=== PATIENT | male | born 1970 | race Caucasian/White ===

== ENCOUNTER → 2018-03-03 | Outpatient (CLI) | payer MEDICAID ==
[~2018-03-03] MED LIST: ALDACTONE25 MG PO; ASPIR 8181 MG PO; CARVEDILOL3.125 MG PO; COZAAR 25 MG TA25 M1 PO; LIPITOR10 MG PO; METFORMIN HCL500 MG PO; MOBIC7.5 MG PO; NORCO 5-325 TA1 EACH PO; PENICILLIN V P500 MG PO
== END ==
LOC: M.RAD 12:51
DX: M47.894 Other spondylosis, thoracic region (principal); M41.82 Other forms of scoliosis, cervical region

== ENCOUNTER → 2018-03-09 | Outpatient (CLI) | payer MEDICAID | LOC: M.ULTRA 12:47 | DX: I73.9 Peripheral vascular disease, unspecified (principal); M79.605 Pain in left leg; M79.604 Pain in right leg; R94.39 Abnormal result of other cardiovascular function study ==

== ENCOUNTER 2019-02-02 13:28 | Inpatient (IN) | payer MEDICAID ==
[~2019-02-02] VITALS: Ht 188 cm; Wt 81.2 kg
[2019-02-02 13:32] VITALS: BP 166/79
[2019-02-02] MEDS ORDERED: PLAVIX 75 MG TA75 M1 PO ×2 (13:37→15:30)
[2019-02-02] MEDS ORDERED: LOVASTATIN 20 M20 MG PO (13:37)
[2019-02-02 14:13] LABS: ABSOLUTE EOSINOPHILS 0.2 thou/uL (0.0-0.7); ABSOLUTE LYMPHOCYTES 1.2 thou/uL (0.8-5.3); ABSOLUTE MONOCYTES 0.5 thou/uL (0.0-1.2); ABSOLUTE NEUTROPHILS 3.3 thou/uL (1.6-8.1); BASOPHILS 0.8 %; EOSINOPHILS 3.2 %; HEMATOCRIT 39.5 % (42.0-52.0); HEMOGLOBIN 13.5 gm/dL (14.0-18.0); LYMPHOCYTES 23.6 %; MCH 29.7 pg (26.0-34.0); MCHC 34.2 g/dL (28.0-37.0); MCV 86.7 fL (80.0-100.0); MONOCYTES 8.9 %; MPV 7.6 fl. (7.2-11.1); NUCLEATED RBCS 0 /100WBC; PLATELET COUNT* 423 thou/uL (150-400); POLYS 63.5 %; RBC 4.55 mil/uL (4.50-6.00); RDW-CV 12.6 % (10.5-14.5); WBC 5.1 thou/uL (4.0-11.0)
[2019-02-02 14:20] LABS: APTT 26.4 Seconds (25.0-31.3); INR 0.9; PROTIME 9.6 Seconds (9.20-11.50)
[2019-02-02 14:28] LABS: ALBUMIN 3.4 g/dL (3.4-5.0); CALCIUM 9.2 mg/dL (8.5-10.1); CREATININE 0.9 mg/dL (0.6-1.3); POTASSIUM 4.1 mmol/L (3.5-5.1); TOTAL BILIRUBIN 0.4 mg/dL (<0.1-1.0); TOTAL PROTEIN 7.6 g/dL (6.4-8.2)
[2019-02-02 19:18] VITALS: BP 155/83
[2019-02-02 19:30] VITALS: BP 158/87
[2019-02-03] VITALS (17 sets, daily range): BP systolic 138–195; BP diastolic 58–110
[2019-02-03 09:24] LABS: HEMATOCRIT 36.6 % (42.0-52.0); HEMOGLOBIN 12.6 gm/dL (14.0-18.0); MCH 30.2 pg (26.0-34.0); MCHC 34.6 g/dL (28.0-37.0); MCV 87.4 fL (80.0-100.0); MPV 8.2 fl. (7.2-11.1); RBC 4.19 mil/uL (4.50-6.00); RDW-CV 12.4 % (10.5-14.5); WBC 4.4 thou/uL (4.0-11.0)
[2019-02-03 09:54] LABS: CALCIUM 9.1 mg/dL (8.5-10.1); CREATININE 0.7 mg/dL (0.6-1.3); MAGNESIUM 1.8 mg/dL (1.8-2.4); POTASSIUM 3.7 mmol/L (3.5-5.1)
[2019-02-04 01:09] VITALS: BP 155/75
[2019-02-04 04:00] VITALS: BP 150/80
[2019-02-04 04:32] LABS: HEMATOCRIT 34.1 % (42.0-52.0); MCH 30.8 pg (26.0-34.0); MCHC 35.2 g/dL (28.0-37.0); MCV 87.5 fL (80.0-100.0); MPV 7.5 fl. (7.2-11.1); RBC 3.9 mil/uL (4.50-6.00); RDW-CV 12.5 % (10.5-14.5); WBC 4.9 thou/uL (4.0-11.0)
[2019-02-04 04:43] LABS: CALCIUM 8.9 mg/dL (8.5-10.1); CREATININE 0.8 mg/dL (0.6-1.3); POTASSIUM 3.8 mmol/L (3.5-5.1)
[2019-02-04 08:00] VITALS: BP 151/81
[2019-02-04 11:16] VITALS: BP 118/76
--- NOTE | 2019-02-04 15:53 | OP ---
[facility] [address] [place] [address] OPERATIVE REPORT Name: VISHNU THOMAS Room: [address] IN M.R.#: [id number] Admission: 02/02/19 Attend Phys: Lincoln Shelby MD Discharge: Date of : 70 Report #: [id number] THIS REPORT FOR: //name// CC: Steve Shelby DATE OF SERVICE: 02/03/2019 PREOPERATIVE DIAGNOSIS: Critical limb ischemia, left leg with acute thrombosis. POSTOPERATIVE DIAGNOSIS: Critical limb ischemia, left leg with acute thrombosis. PROCEDURES: 1. Angiogram aorta with runoff, left leg. 2. Ultrasound guidance for venous access with image saved, right common femoral artery. 3. Thrombolysis, left lower extremity popliteal and tibial vessels. 4. Thrombectomy, left lower extremity popliteal and tibial vessels. 5. Angioplasty, left lower extremity tibial vessels. 6. Angioplasty and stent, left femoral and popliteal arteries. 7. Angioplasty and stent, left common iliac artery. FINDINGS: 1. Aorta is widely patent. 2. Left common iliac artery has significant stenosis at its origin. 3. Remainder of the iliac vessels are widely patent bilaterally. 4. Bilateral common femoral, profunda femoris arteries widely patent. 5. Left SFA stent occluded at the adductor canal. There is reconstitution tibial vessels distally. There appears to be vwuhs-dx-eoaopjj thrombus. 6. There is a tight stenosis, mid stent after thrombectomy. After intervention, this is widely patent. 7. There is wide patency of tibial vessels after intervention. 8. There is wide patency of the left common iliac artery after angioplasty and stenting. SURGEON: Ej Kline MD LEGAL RECORDS CLERK: Abad Roberson. COMPLICATIONS: None. ESTIMATED BLOOD LOSS: 10 mL. SPECIMEN: Includes thrombectomy volume [address]. [place] [address] OPERATIVE REPORT Name: VISHNU THOMAS Room: [address]#: [id number] Admission: 02/02/19 Attend Phys: Lincoln Shelby MD Discharge: Date of : 70 Report #: [id number] ANESTHESIA: Local sedation. COMPLICATIONS: None. INDICATION FOR PROCEDURE: The patient is very well known to our service. He underwent angiogram by my partner, Dr. Valdez, done at [facility] about a month ago. He developed recurrent severe left leg pain last week. He presented to the ER with same complaints. He was noted to have an ischemic left foot and thrombosis of the stents. We recommended an urgent revascularization. Informed consent was obtained with risks including, but not limited to bleeding, infection, need for further surgery, pain, , heart attack, stroke, amputation. I think his risk of amputation is quite high given the prolonged time course to presentation and the severity of his disease. The patient understood these risks and was agreeable to proceed. DESCRIPTION OF PROCEDURE: The patient was taken to the angio suite, placed in supine position. Timeout was performed. The patient's right groin was prepped and draped. I infused 10 mL of 1% lidocaine. Under ultrasound guidance, with an image saved, I cannulated the right common femoral artery without difficulty. I used Seldinger technique to exchange out for a 6-Fijian sheath. I passed an Omniflush catheter into the abdominal aorta and performed aortogram. I selectively cannulated the left iliac system and placed ____ 6-Fijian sheath. I selectively cannulated the left superficial femoral artery. I used a wire and catheter to cross the occlusion within the distal stents. I then prepped and AngioJet 6-Fijian catheter. I power pulsed, infused 10 mg of TPA throughout the thrombus. I allowed this to marinate for 20 minutes. I then performed thrombectomy using the AngioJet catheter. Total volume was 220 mL. The patient now had flow through these vessels; however, there was still some residual thrombus and a tight narrowing within the mid stent. I placed a 7 x 60 E-Luminexx stent in the narrowed area. I post-dilated this with a 6 mm balloon. I had excellent result. Distally, there was some residual thrombus on the stents. I thus realigned the distal stents with a 6 x 80 LifeStent extending approximately 2 cm more distal into the below-knee popliteal artery. I post-dilated these with a 5 mm balloon. I had an excellent result with resolution of the thrombus. There is some residual thrombus in the tibial vessels. I angioplastied the anterior tibial and tibioperoneal trunk with a 4 mm balloon. I had an excellent result with resolution on completion imaging. On completion, the patient had 3-vessel runoff to the left foot. Main runoff appeared to be the anterior tibial artery. I withdrew my wire catheter. I performed repeat angiogram of the left iliac artery. I placed a 12 x 40 E-Luminexx stent in the common iliac artery. I post-dilated this with an 8 mm balloon. Completion imaging showed excellent result with resolution of the iliac stenosis. I removed my sheath and placed a 6-Fijian Angio-Seal without complication. There was no bleeding or hematoma. The patient tolerated the procedure well and was taken alert, awake to recovery room in good condition. [address] [address] OPERATIVE REPORT Name: LOIS THOMASN Zachary Room: [address]#: [id number] Admission: 02/02/19 Attend Phys: Lincoln Shelby MD Discharge: Date of : 70 Report #: [id number] Plan will be to continue heparin drip and convert the patient to oral anticoagulation for the foreseeable future. <ELECTRONICALLY SIGNED> By: Medardo Galan DO 02/04/19 1553 1213 0227Ej Kline MD /nt
[2019-02-04 20:00] VITALS: BP 158/83
[2019-02-04 23:48] VITALS: BP 146/70
[2019-02-05 03:07] LABS: HEMATOCRIT 32.7 % (42.0-52.0); HEMOGLOBIN 11.6 gm/dL (14.0-18.0); MCH 30.8 pg (26.0-34.0); MCHC 35.5 g/dL (28.0-37.0); MCV 86.6 fL (80.0-100.0); MPV 7.4 fl. (7.2-11.1); RBC 3.77 mil/uL (4.50-6.00); RDW-CV 12.7 % (10.5-14.5); WBC 4.1 thou/uL (4.0-11.0)
[2019-02-05 03:17] LABS: ALBUMIN 2.7 g/dL (3.4-5.0); CALCIUM 8.6 mg/dL (8.5-10.1); CREATININE 0.8 mg/dL (0.6-1.3); MAGNESIUM 1.8 mg/dL (1.8-2.4); TOTAL BILIRUBIN 0.3 mg/dL (<0.1-1.0)
[2019-02-05 04:08] VITALS: BP 137/70
[2019-02-05 08:00] VITALS: BP 166/89
[2019-02-05 12:00] VITALS: BP 151/82
[2019-02-05 16:00] VITALS: BP 137/69
[2019-02-05 20:00] VITALS: BP 151/71
[2019-02-06] VITALS: BP 147/68
[2019-02-06 04:00] VITALS: BP 128/71
[2019-02-06 07:19] LABS: HEMOGLOBIN 12.7 gm/dL (14.0-18.0); MCH 30.2 pg (26.0-34.0); MCHC 34.4 g/dL (28.0-37.0); MCV 87.8 fL (80.0-100.0); MPV 7.6 fl. (7.2-11.1); RBC 4.21 mil/uL (4.50-6.00); RDW-CV 12.6 % (10.5-14.5); WBC 3.8 thou/uL (4.0-11.0)
[2019-02-06 07:24] LABS: CALCIUM 8.7 mg/dL (8.5-10.1); CREATININE 0.8 mg/dL (0.6-1.3); MAGNESIUM 1.8 mg/dL (1.8-2.4); POTASSIUM 3.7 mmol/L (3.5-5.1)
[2019-02-06 07:26] LABS: PROTIME 10.1 Seconds (9.20-11.50)
[2019-02-06 09:00] VITALS: BP 155/62
[2019-02-06 12:00] VITALS: BP 157/78
[2019-02-06 20:00] VITALS: BP 146/66
[2019-02-07] VITALS: BP 140/69
[2019-02-07 04:00] VITALS: BP 151/76
[2019-02-07 04:22] LABS: HEMATOCRIT 34.4 % (42.0-52.0); HEMOGLOBIN 11.9 gm/dL (14.0-18.0); MCH 30.3 pg (26.0-34.0); MCHC 34.7 g/dL (28.0-37.0); MCV 87.5 fL (80.0-100.0); MPV 7.7 fl. (7.2-11.1); RBC 3.93 mil/uL (4.50-6.00); RDW-CV 12.6 % (10.5-14.5); WBC 3.6 thou/uL (4.0-11.0)
[2019-02-07 04:32] LABS: PROTIME 10.5 Seconds (9.20-11.50)
[2019-02-07 04:37] LABS: CALCIUM 8.9 mg/dL (8.5-10.1); CREATININE 0.8 mg/dL (0.6-1.3)
[2019-02-07 04:54] LABS: APTT 69.7 Seconds (25.0-31.3)
[2019-02-07 08:30] VITALS: BP 148/67
[2019-02-07 12:20] VITALS: BP 130/61
[2019-02-07 16:44] VITALS: BP 156/77
[2019-02-07 20:00] VITALS: BP 144/72
[2019-02-08 00:23] VITALS: BP 127/67
[2019-02-08 04:00] VITALS: BP 123/76
[2019-02-08 04:58] LABS: HEMATOCRIT 37.8 % (42.0-52.0); HEMOGLOBIN 13.1 gm/dL (14.0-18.0); MCH 30.3 pg (26.0-34.0); MCHC 34.6 g/dL (28.0-37.0); MCV 87.7 fL (80.0-100.0); MPV 7.7 fl. (7.2-11.1); RBC 4.31 mil/uL (4.50-6.00)
[2019-02-08 05:10] LABS: INR 1.1; PROTIME 11.7 Seconds (9.20-11.50)
[2019-02-08 05:14] LABS: CALCIUM 9.4 mg/dL (8.5-10.1); CREATININE 0.8 mg/dL (0.6-1.3); POTASSIUM 3.9 mmol/L (3.5-5.1)
[2019-02-08 08:30] VITALS: BP 132/64
[2019-02-08 12:30] VITALS: BP 101/49
[2019-02-08 16:15] VITALS: BP 129/72
[2019-02-08 19:50] VITALS: BP 137/65
[2019-02-09] VITALS (7 sets, daily range): BP systolic 117–158; BP diastolic 55–70
[2019-02-09 05:47] LABS: INR 1.5; PROTIME 15.1 Seconds (9.20-11.50)
[2019-02-10 04:00] VITALS: BP 159/71
[2019-02-10 05:00] LABS: INR 1.6; PROTIME 16.7 Seconds (9.20-11.50)
[2019-02-10 05:08] LABS: APTT 102.2 Seconds (25.0-31.3)
[2019-02-10 08:43] VITALS: BP 134/68
[2019-02-10 11:31] VITALS: BP 138/67
[2019-02-10 16:10] VITALS: BP 139/72
[2019-02-10 19:30] VITALS: BP 124/70
[2019-02-11] VITALS: BP 119/63
[2019-02-11 02:33] LABS: APTT 66.9 Seconds (25.0-31.3); INR 1.9; PROTIME 19.6 Seconds (9.20-11.50)
[2019-02-11 04:00] VITALS: BP 131/64
[2019-02-11 08:00] VITALS: BP 134/52
[2019-02-11] MEDS ORDERED: COUMADIN 5 MG TA5 M1 PO (11:10)
[2019-02-11] MEDS ORDERED: GABAPENTIN 100100 MG PO ×2 (11:10→13:50)
[2019-02-11] MEDS ORDERED: NORCO 7.5-3251 EACH PO (11:10)
[2019-02-11 11:54] VITALS: BP 150/82
[2019-02-11 13:33] VITALS: BP 150/82
[2019-02-11] MEDS ORDERED: NORCO 5-325 TA1 EACH PO (13:45)
== END 2019-02-11 15:27 | disposition home or self-care (01) | DRG 271 ==
LOC: M.ERS 13:28 → M.2W 16:18 → M.TBA-ER 16:18 → M.2W 19:10
PROVIDERS: Family Medicine; Surgery Vascular Surgery; ADMIT Internal Medicine
PROC: B4101ZZ Fluoroscopy of Abdominal Aorta using Low Osmolar Contrast (ICD-10-PCS; principal; 2019-02-03)
PROC: 047D3DZ Dilation of Left Common Iliac Artery with Intraluminal Device, Percutaneous Approach (ICD-10-PCS; principal; 2019-02-03)
PROC: 04CN3ZZ Extirpation of Matter from Left Popliteal Artery, Percutaneous Approach (ICD-10-PCS; principal; 2019-02-03)
PROC: 047N3DZ Dilation of Left Popliteal Artery with Intraluminal Device, Percutaneous Approach (ICD-10-PCS; principal; 2019-02-03)
PROC: 04CQ3ZZ Extirpation of Matter from Left Anterior Tibial Artery, Percutaneous Approach (ICD-10-PCS; principal; 2019-02-03)
PROC: 047L3DZ Dilation of Left Femoral Artery with Intraluminal Device, Percutaneous Approach (ICD-10-PCS; principal; 2019-02-03)
DX: E11.51 Type 2 diabetes mellitus with diabetic peripheral angiopathy without gangrene (principal); E44.1 Mild protein-calorie malnutrition; I77.1 Stricture of artery; I10 Essential (primary) hypertension; I82.412 Acute embolism and thrombosis of left femoral vein; I82.432 Acute embolism and thrombosis of left popliteal vein; I82.442 Acute embolism and thrombosis of left tibial vein; F17.210 Nicotine dependence, cigarettes, uncomplicated; E78.5 Hyperlipidemia, unspecified; I99.8 Other disorder of circulatory system; Z95.820 Peripheral vascular angioplasty status with implants and grafts; Z68.23 Body mass index [BMI] 23.0-23.9, adult; Z79.899 Other long term (current) drug therapy

== ENCOUNTER → 2019-02-25 | Outpatient (CLI) | payer MEDICAID ==
[~2019-02-25] MED LIST changes: +COUMADIN 5 MG TA5 M1 PO; +GABAPENTIN 100100 MG PO; +LOVASTATIN 20 M20 MG PO; +NORCO 7.5-3251 EACH PO; +PLAVIX 75 MG TA75 M1 PO
== END ==
LOC: M.ULTRA 12:54
DX: I70.213 Atherosclerosis of native arteries of extremities with intermittent claudication, bilateral legs (principal)

== ENCOUNTER 2019-02-26 20:54 | Emergency (ER) | payer MEDICAID ==
[~2019-02-26] VITALS: Ht 188 cm; Wt 86.2 kg
[2019-02-26 21:43] LABS: ABSOLUTE EOSINOPHILS 0.2 thou/uL (0.0-0.7); ABSOLUTE LYMPHOCYTES 2.7 thou/uL (0.8-5.3); ABSOLUTE MONOCYTES 0.5 thou/uL (0.0-1.2); ABSOLUTE NEUTROPHILS 3.2 thou/uL (1.6-8.1); BASOPHILS 0.7 %; EOSINOPHILS 3.6 %; HEMOGLOBIN 14.2 gm/dL (14.0-18.0); LYMPHOCYTES 40.9 %; MCH 30.7 pg (26.0-34.0); MCHC 35.4 g/dL (28.0-37.0); MCV 86.8 fL (80.0-100.0); MONOCYTES 6.8 %; MPV 7.3 fl. (7.2-11.1); NUCLEATED RBCS 0 /100WBC; PLATELET COUNT* 359 thou/uL (150-400); RBC 4.61 mil/uL (4.50-6.00); RDW-CV 12.8 % (10.5-14.5); WBC 6.7 thou/uL (4.0-11.0)
[2019-02-26 21:49] LABS: CALCIUM 8.7 mg/dL (8.5-10.1); CREATININE 1.2 mg/dL (0.6-1.3); POTASSIUM 4.1 mmol/L (3.5-5.1)
[2019-02-26 21:52] LABS: APTT 38.7 Seconds (25.0-31.3); INR 2.1; PROTIME 21.9 Seconds (9.20-11.50)
[2019-02-26] MEDS ORDERED: NORCO 5-325 TA1 EACH PO (23:42)
[2019-02-26] MEDS ORDERED: PLAVIX 75 MG TA75 M1 PO (23:56)
[2019-02-26 23:59] VITALS: BP 168/87
== END 2019-02-27 | disposition home or self-care (01) ==
LOC: M.ERS 20:54
PROVIDERS: Physician Assistant
DX: M79.672 Pain in left foot (principal); I10 Essential (primary) hypertension; E11.9 Type 2 diabetes mellitus without complications; I73.9 Peripheral vascular disease, unspecified; F17.210 Nicotine dependence, cigarettes, uncomplicated

== ENCOUNTER 2019-08-12 15:54 | Emergency (ER) | payer MEDICAID ==
[~2019-08-12] VITALS: Ht 188 cm; Wt 86.2 kg
[2019-08-12 17:45] VITALS: BP 163/86
== END 2019-08-12 17:46 | disposition home or self-care (01) ==
LOC: M.ERS 15:54
DX: M25.511 Pain in right shoulder (principal); F17.200 Nicotine dependence, unspecified, uncomplicated; I10 Essential (primary) hypertension; E11.9 Type 2 diabetes mellitus without complications; I73.9 Peripheral vascular disease, unspecified

== ENCOUNTER → 2019-09-02 | Outpatient (CLI) | payer MEDICAID ==
[~2019-09-02] MED LIST changes: +ASA81BEC PO; +COUMADIN 10MG T10 M1 PO; +HYDROCODON-ACE1 EAC5 PO; +IBUPROFEN200 M1 PO; +LIPITOR 20 MG T20 M1 PO; +NEURONTIN300 MG PO; +NICOTINE TRANSD21 M1 TRANSDERM; +PROTONIX40 M2 PO; +XANAX 0.5 MG0.5 M1 PO; +XARELTO10 M1 PO
== END ==
LOC: M.RAD 08-22 09:21
DX: Z53.9 Procedure and treatment not carried out, unspecified reason (principal)

== ENCOUNTER → 2019-09-20 | Outpatient (CLI) | payer MEDICAID | LOC: M.MRI 07:23 | DX: S46.011A Strain of muscle(s) and tendon(s) of the rotator cuff of right shoulder, initial encounter (principal); M19.011 Primary osteoarthritis, right shoulder; M25.711 Osteophyte, right shoulder; M75.81 Other shoulder lesions, right shoulder; M25.411 Effusion, right shoulder; X58.XXXA Exposure to other specified factors, initial encounter; Y93.89 Activity, other specified; Y92.89 Other specified places as the place of occurrence of the external cause; Y99.8 Other external cause status ==

== ENCOUNTER 2019-10-06 10:04 | Inpatient (IN) | payer MEDICAID ==
[~2019-10-06] VITALS: Ht 188 cm; Wt 92.5 kg
[~2019-10-06 10:04] MED LIST changes: -ASA81BEC PO; -COUMADIN 10MG T10 M1 PO; -HYDROCODON-ACE1 EAC5 PO; -IBUPROFEN200 M1 PO; -LIPITOR 20 MG T20 M1 PO; -NEURONTIN300 MG PO; -NICOTINE TRANSD21 M1 TRANSDERM; -PROTONIX40 M2 PO; -XANAX 0.5 MG0.5 M1 PO; -XARELTO10 M1 PO
[2019-10-06 10:11] VITALS: BP 146/74
[2019-10-06] MEDS ORDERED: COUMADIN 10MG T10 M1 PO (10:15)
[2019-10-06 10:54] LABS: ABSOLUTE EOSINOPHILS 0.2 thou/uL (0.0-0.7); ABSOLUTE LYMPHOCYTES 1.6 thou/uL (0.8-5.3); ABSOLUTE MONOCYTES 0.6 thou/uL (0.0-1.2); ABSOLUTE NEUTROPHILS 3.4 thou/uL (1.6-8.1); BASOPHILS 0.6 %; EOSINOPHILS 3.8 %; HEMATOCRIT 37.2 % (42.0-52.0); HEMOGLOBIN 13.2 gm/dL (14.0-18.0); LYMPHOCYTES 27.3 %; MCH 31.4 pg (26.0-34.0); MCHC 35.5 g/dL (28.0-37.0); MCV 88.5 fL (80.0-100.0); MONOCYTES 10.8 %; NUCLEATED RBCS 0 /100WBC; PLATELET COUNT* 283 thou/uL (150-400); POLYS 57.5 %; RBC 4.21 mil/uL (4.50-6.00); RDW-CV 12.6 % (10.5-14.5)
[2019-10-06 11:02] LABS: CALCIUM 8.9 mg/dL (8.5-10.1); CREATININE 0.9 mg/dL (0.6-1.3); POTASSIUM 4.5 mmol/L (3.5-5.1)
[2019-10-06 11:06] LABS: ALBUMIN 3.5 g/dL (3.4-5.0); TOTAL BILIRUBIN 0.5 mg/dL (<0.1-1.0); TOTAL PROTEIN 7.1 g/dL (6.4-8.2)
[2019-10-06 11:07] LABS: APTT 38.5 Seconds (25.0-31.3); PROTIME 19.6 Seconds (9.20-11.50)
[2019-10-06 16:00] VITALS: BP 156/67
[2019-10-06] MEDS ORDERED: XANAX 0.5 MG0.5 M1 PO (17:07)
[2019-10-06 17:15] VITALS: BP 163/94
[2019-10-06 17:30] VITALS: BP 193/88
[2019-10-06 20:00] VITALS: BP 166/73
[2019-10-06 21:00] VITALS: BP 175/88
[2019-10-07] VITALS: BP 157/75
[2019-10-07 07:15] LABS: HEMATOCRIT 33.5 % (42.0-52.0); HEMOGLOBIN 12.1 gm/dL (14.0-18.0); MCH 31.7 pg (26.0-34.0); MCHC 36.1 g/dL (28.0-37.0); MCV 87.9 fL (80.0-100.0); MPV 7.5 fl. (7.2-11.1); RBC 3.81 mil/uL (4.50-6.00); RDW-CV 12.8 % (10.5-14.5); WBC 5.6 thou/uL (4.0-11.0)
[2019-10-07 07:35] LABS: CALCIUM 8.5 mg/dL (8.5-10.1); CREATININE 0.8 mg/dL (0.6-1.3); POTASSIUM 4.1 mmol/L (3.5-5.1); TOTAL BILIRUBIN 0.5 mg/dL (<0.1-1.0)
[2019-10-07 08:25] VITALS: BP 159/77
[2019-10-07 09:57] VITALS: BP 145/76
[2019-10-07 16:00] VITALS: BP 115/62
[2019-10-07 20:00] VITALS: BP 151/60
[2019-10-08 09:52] VITALS: BP 165/81
[2019-10-08] MEDS ORDERED: IBUPROFEN200 M1 PO (11:10)
[2019-10-08 11:11] VITALS: BP 165/81
[2019-10-08] MEDS ORDERED: HYDROCODON-ACE1 EAC5 PO (11:17)
[2019-10-08] MEDS ORDERED: PROTONIX40 M2 PO (11:22)
[2019-10-08] MEDS ORDERED: NICOTINE TRANSD21 M1 TRANSDERM (11:22)
[2019-10-08] MEDS ORDERED: XARELTO10 M1 PO (11:23)
[2019-10-08] MEDS ORDERED: ASA81BEC PO (12:13)
[2019-10-08] MEDS ORDERED: LIPITOR 20 MG T20 M1 PO (12:18)
[2019-10-08] MEDS ORDERED: NEURONTIN300 MG PO (12:20)
--- NOTE | 2019-10-14 12:02 | OP ---
[address] [address] OPERATIVE REPORT Name: NATALIAANTONIOVISHNUJAM ZIMMERMAN Room: [address] IN .R.#: [id number] Admission: 10/06/19 Attend Phys: Chi Kim, Discharge: 10/08/19 Date of : 70 Report #: [id number] THIS REPORT FOR: //name// CC: Steve Kim DATE OF SERVICE: 10/06/2019 PREOPERATIVE DIAGNOSIS: Acute limb ischemia, left lower extremity. POSTOPERATIVE DIAGNOSIS: Acute limb ischemia, left lower extremity. PROCEDURES: 1. Aortogram runoff, left lower extremity. 2. Left SFA and popliteal artery thrombectomy. 3. Angioplasty, left popliteal artery. 4. Angioplasty and stenting of left superficial femoral artery. 5. Angioplasty of the left profunda femoris artery. 6. Third-order vessel cannulation, left lower extremity. 7. Thrombolysis, left lower extremity. SURGEON: Ej Kline MD SECTION BEAMER: KIARA Broussard COMPLICATIONS: None. ANESTHESIA: Local with sedation. COMPLICATIONS: None. ESTIMATED BLOOD LOSS: 10 mL. THROMBECTOMY VOLUME: 300 mL. INDICATIONS FOR PROCEDURE: The patient is a very pleasant 48-year-old white male, smoker, who has presented on multiple occasions with an acutely ischemic left lower extremity. Most recently, he was back in January of this last year when I performed a similar procedure and revascularized his left leg. He represents today with a 3-day history of worsening left leg pain. Duplex confirmed acute thrombosis of his left SFA and popliteal stent. He was finally taken for emergent revascularization today. Informed consent was obtained with risks including but not limited to bleeding, infection, need for further surgery, pain, , heart attack, stroke, amputation. The patient understands these risks and is agreeable to proceed. If he continues to smoke, he would certainly end up with an amputation of his left leg given his multiple acute [facility] [address] [place] [address] OPERATIVE REPORT Name: VISHNU THOMAS Room: [address]#: [id number] Admission: 10/06/19 Attend Phys: Chi Kim, Discharge: 10/08/19 Date of : 70 Report #: [id number] limb ischemic events. DESCRIPTION OF PROCEDURE: The patient was taken emergently to the angio suite, placed in supine position. Timeout was performed. His right groin was prepped and draped in usual sterile fashion. I infused 20 mL of 1% lidocaine into the right groin. I accessed the right common femoral artery without difficulty. I used Seldinger technique to exchange out for a 6-Guatemalan sheath. I then placed an Omniflush catheter into the abdominal aorta and performed aortogram with runoff. I selectively cannulated the left iliac system. I placed it up and over 6-Guatemalan sheath. I performed selective angiogram of the left leg. FINDINGS: 1. Aorta and iliac arteries are widely patent bilaterally. The left iliac stent is widely patent. 2. The bilateral common femoral and profunda femoris arteries are widely patent. 3. The left SFA is acutely thrombosed all the way down to the level of the popliteal artery and reconstitutes below the knee. 4. The patient has 3-vessel runoff to the left foot. 5. After thrombectomy and revascularization, there was a widely patent flow through the SFA and popliteal stents. I selectively cannulated the thrombosed SFA and passed a wire and crossed it through the acute thrombus. I confirmed that I was within the vessel distally with distal angiogram. I then prepped an AngioJet thrombectomy thrombolysis catheter. I performed thrombolysis of the entire SFA and popliteal stents using the AngioJet power pulse mode. I injected 10 mg TPA throughout the fresh thrombus. I allowed this to marinate for 20 minutes. I do note at 20 minutes I performed thrombectomy of the entire SFA and popliteal stents using the AngioJet catheter. Total thrombectomy volume of 300 mL. I then angioplastied the entire stent of popliteal using a 6 mm balloon. Completion imaging showed excellent result with resolution of the acute thrombus and much improved blood flow through the stent. There was still some residual stenosis in the proximal SFA stents as well as proximal to the stent up to the SFA origin. I stented both of these areas using a combination of 7 x 60 and 7 x 80 stents. I post-dilated these with a 6 mm balloon. Completion imaging showed excellent result with resolution of the stenosis. There did appear to be some subacute thrombus, which was down in the profunda. I ballooned this. There was some residual thrombus at the completion of the ballooning. I ballooned with a 6 mm balloon. However, this was non-flow limiting and I will just leave it at this time. To address this appropriately, he would likely require an endarterectomy opened in the OR. I removed my sheath and wire, placed a 6-Guatemalan Angio-Seal without complication. There was no bleeding or hematoma. The patient's foot was pink and warm at completion of the procedure with multiphasic signal in the posterior tibial artery. [address] [address] OPERATIVE REPORT Name: VISHNU THOMAS Room: [facility] IN [facility]#: [id number] Admission: 10/06/19 Attend Phys: Chi Kim, Discharge: 10/08/19 Date of : 70 Report #: [id number] PLAN: After the last ischemic leg, this patient was lost to follow up. He did follow up at [place] but no ultrasound was obtained. I think he needs close followup with an ultrasound in 1 month as he has been shown to have significant restenosis. At that time, if he has restenosis ____ for femoral endarterectomy ____ balloon angioplasty done at [place]. He was on Coumadin with an INR of up to 2 when he thrombosed his leg. For this reason, we will plan to put him on Xarelto instead if we can give that medication for him. He is on Medicaid. <ELECTRONICALLY SIGNED> By: Ej Kline MD 10/14/19 1202 1557 1718Ej Kline MD /nt
== END 2019-10-08 13:46 | disposition home or self-care (01) | DRG 272 ==
LOC: M.ERS 10:04 → M.TBA-ER 11:27 → M.3W 16:43
PROVIDERS: Nurse Practitioner Family; ADMIT Family Medicine
PROC: B41D1ZZ Fluoroscopy of Aorta and Bilateral Lower Extremity Arteries using Low Osmolar Contrast (ICD-10-PCS; principal; 2019-10-06)
PROC: 04CN3ZZ Extirpation of Matter from Left Popliteal Artery, Percutaneous Approach (ICD-10-PCS; principal; 2019-10-06)
PROC: 04CL3ZZ Extirpation of Matter from Left Femoral Artery, Percutaneous Approach (ICD-10-PCS; principal; 2019-10-06)
PROC: 047L3EZ Dilation of Left Femoral Artery with Two Intraluminal Devices, Percutaneous Approach (ICD-10-PCS; principal; 2019-10-06)
PROC: B41C1ZZ Fluoroscopy of Pelvic Arteries using Low Osmolar Contrast (ICD-10-PCS; principal; 2019-10-06)
PROC: 3E05317 Introduction of Other Thrombolytic into Peripheral Artery, Percutaneous Approach (ICD-10-PCS; principal; 2019-10-06)
DX: T82.868A Thrombosis due to vascular prosthetic devices, implants and grafts, initial encounter (principal); E11.51 Type 2 diabetes mellitus with diabetic peripheral angiopathy without gangrene; Y83.8 Other surgical procedures as the cause of abnormal reaction of the patient, or of later complication, without mention of misadventure at the time of the procedure; I10 Essential (primary) hypertension; F17.210 Nicotine dependence, cigarettes, uncomplicated; Z95.820 Peripheral vascular angioplasty status with implants and grafts; Z79.84 Long term (current) use of oral hypoglycemic drugs; Y92.89 Other specified places as the place of occurrence of the external cause; Z86.718 Personal history of other venous thrombosis and embolism

== ENCOUNTER 2019-10-13 14:12 | Emergency (ER) | payer MEDICAID ==
[~2019-10-13] VITALS: Ht 188 cm; Wt 86.2 kg
[~2019-10-13 14:12] MED LIST changes: +ASA81BEC PO; +COUMADIN 10MG T10 M1 PO; +HYDROCODON-ACE1 EAC5 PO; +IBUPROFEN200 M1 PO; +LIPITOR 20 MG T20 M1 PO; +NEURONTIN300 MG PO; +NICOTINE TRANSD21 M1 TRANSDERM; +PROTONIX40 M2 PO; +XANAX 0.5 MG0.5 M1 PO; +XARELTO10 M1 PO
[2019-10-13 15:04] LABS: INR 1.6; PROTIME 16.6 Seconds (9.20-11.50)
[2019-10-13 15:07] LABS: CREATININE 1.1 mg/dL (0.6-1.3); POTASSIUM 4.1 mmol/L (3.5-5.1)
[2019-10-13 15:49] VITALS: BP 171/90
== END 2019-10-13 15:50 | disposition home or self-care (01) ==
LOC: M.ERS 14:12
PROVIDERS: Emergency Medicine Emergency Medical Services
DX: M79.672 Pain in left foot (principal); I10 Essential (primary) hypertension; E11.9 Type 2 diabetes mellitus without complications

== ENCOUNTER 2020-07-31 01:01 | Inpatient (IN) | payer MEDICAID ==
[~2020-07-31] VITALS: Ht 188 cm; Wt 87.5 kg
[2020-07-31 01:10] VITALS: BP 180/96
[2020-07-31] MEDS ORDERED: GLIPIZIDE PO (01:17)
[2020-07-31] MEDS ORDERED: JANTOVEN10 MG PO (01:17)
[2020-07-31 01:55] LABS: ABSOLUTE BASOPHILS 0.1 thou/uL (0.0-0.2); ABSOLUTE EOSINOPHILS 0.2 thou/uL (0.0-0.7); ABSOLUTE LYMPHOCYTES 2.7 thou/uL (0.8-5.3); ABSOLUTE MONOCYTES 0.6 thou/uL (0.0-1.2); BASOPHILS 0.8 %; EOSINOPHILS 2.9 %; HEMATOCRIT 42.4 % (42.0-52.0); HEMOGLOBIN 15.3 gm/dL (14.0-18.0); LYMPHOCYTES 35.5 %; MCH 31.5 pg (26.0-34.0); MCHC 36.1 g/dL (28.0-37.0); MCV 87.3 fL (80.0-100.0); MONOCYTES 8.4 %; MPV 7.5 fl. (7.2-11.1); NUCLEATED RBCS 0 /100WBC; PLATELET COUNT* 228 thou/uL (150-400); POLYS 52.4 %; RBC 4.85 mil/uL (4.50-6.00); RDW-CV 13.4 % (10.5-14.5); WBC 7.6 thou/uL (4.0-11.0)
[2020-07-31 01:58] LABS: INR 2.1; PROTIME 20.7 Seconds (9.20-11.50)
[2020-07-31 02:02] LABS: CALCIUM 8.3 mg/dL (8.5-10.1); CREATININE 0.9 mg/dL (0.6-1.3); POTASSIUM 4.2 mmol/L (3.5-5.1)
[2020-07-31 07:43] VITALS: BP 131/70
[2020-07-31 11:23] VITALS: BP 128/65
[2020-07-31 16:01] VITALS: BP 107/65; BP 140/76
[2020-07-31 16:23] VITALS: BP 140/76
== END 2020-07-31 19:47 | disposition left against medical advice (07) | DRG 316 ==
LOC: M.ERS 01:01 → M.TBA-ER 04:16 → M.2W 15:55
PROVIDERS: Emergency Medicine; ADMIT Internal Medicine; ATTEND Internal Medicine
DX: T82.868A Thrombosis due to vascular prosthetic devices, implants and grafts, initial encounter (principal); I77.1 Stricture of artery; I10 Essential (primary) hypertension; I99.8 Other disorder of circulatory system; E11.51 Type 2 diabetes mellitus with diabetic peripheral angiopathy without gangrene; Y83.8 Other surgical procedures as the cause of abnormal reaction of the patient, or of later complication, without mention of misadventure at the time of the procedure; Z20.828 Contact with and (suspected) exposure to other viral communicable diseases; Y92.89 Other specified places as the place of occurrence of the external cause; Z79.01 Long term (current) use of anticoagulants; Z79.84 Long term (current) use of oral hypoglycemic drugs; Z79.82 Long term (current) use of aspirin; Z79.899 Other long term (current) drug therapy

== ENCOUNTER 2020-07-31 21:37 | Inpatient (IN) | payer MEDICAID ==
[~2020-07-31] VITALS: Ht 188 cm; Wt 80.7 kg
[~2020-07-31 21:37] MED LIST changes: +GLIPIZIDE PO; +JANTOVEN10 MG PO
[2020-07-31 21:45] VITALS: BP 118/82
--- NOTE | 2020-07-31 22:00 | NUR ---
PATIENT RETURNING TO ED STATES HE WAS ADMITTED TO THE HOSPITAL BUT SIGNED OUT AGAINST MEDICAL ADVICE IN ORDER TO RETURN HOME TO TAKE CARE OF THINGS AT HOME AND IS RETURNING FOR CONTINUED TREATMENT. PATIENT AMBULATORY INTO ED AND IS RETURNING FOR READMISSION.
[2020-08-01] VITALS (7 sets, daily range): BP systolic 138–177; BP diastolic 64–86
[2020-08-01 00:13] LABS: ABSOLUTE EOSINOPHILS 0.2 thou/uL (0.0-0.7); ABSOLUTE LYMPHOCYTES 2.5 thou/uL (0.8-5.3); ABSOLUTE MONOCYTES 0.6 thou/uL (0.0-1.2); BASOPHILS 0.6 %; EOSINOPHILS 3.4 %; HEMATOCRIT 43.5 % (42.0-52.0); HEMOGLOBIN 15.9 gm/dL (14.0-18.0); LYMPHOCYTES 39.6 %; MCH 31.7 pg (26.0-34.0); MCHC 36.5 g/dL (28.0-37.0); MCV 86.9 fL (80.0-100.0); MPV 7.5 fl. (7.2-11.1); NUCLEATED RBCS 0 /100WBC; PLATELET COUNT* 232 thou/uL (150-400); POLYS 47.4 %; RDW-CV 13.2 % (10.5-14.5); WBC 6.4 thou/uL (4.0-11.0)
[2020-08-01 00:23] LABS: PROTIME 20.5 Seconds (9.20-11.50)
[2020-08-01 00:26] LABS: CALCIUM 8.5 mg/dL (8.5-10.1); CREATININE 0.9 mg/dL (0.6-1.3); POTASSIUM 4.3 mmol/L (3.5-5.1); TOTAL BILIRUBIN 0.4 mg/dL (<0.1-1.0); TOTAL PROTEIN 7.2 g/dL (6.4-8.2)
--- NOTE | 2020-08-01 06:11 | NUR ---
PT RECIEVED FROM ED IN ROOM 201. ALERT AND ORIENTED X4. HEPARIN DRIP RUNNING. C/O PAIN, MEDICATION GIVEN PER EMAR. LFT LEG COOL TO TOUCH. PT USING BEDSIDE URINAL. CALL LIGHT WITHIN REACH AND BED IN LOW POSITION. HOURLY ROUNDING DONE FOR PT SAFETY
--- NOTE | 2020-08-01 13:43 | NUR ---
Pt is A&O. Resides at home alone. Independent. No DME. No hx of HH or SNF. Pt's PCP is Dr Ken in [place]. CV to [facility], revision on legs tomorrow. Goal is home at me. Following.
--- NOTE | 2020-08-01 15:04 | 2DMMODE ---
[place] [address] 2 D/M-MODE ECHOCARDIOGRAM Name: WILLIAMVISHNUJAM ZIMMERMAN Room: [address] IN .R.#: [id number] Admission: 07/31/20 Attend Phys: Lincoln Shelby, Discharge: Date of : 70 Date of Service: 08/01/20 1503 Report #: [id number] THIS REPORT FOR: cc: INOCENCIO - No family physician/PCP INOCENCIO - No family physician/PCP Rober Ortiz MD [facility] ~ APPROVED REPORT Study performed: 08/01/2020 11:22:03 EXAM: Comprehensive 2D, Doppler, and color-flow Echocardiogram Patient Location: In-Patient Room #: 201 Status: routine BSA: 2.07 HR: 70 bpm BP: 138/64 mmHg Rhythm: NSR Other Information Study Quality: Good Indications Pre-Op 2D Dimensions IVSd: 10.98 (7-11mm) LVOT Diam: 19.94 (18-24mm) LVDd: 45.17 mm PWd: 9.73 (7-11mm) Ascending Ao: 32.87 (22-36mm) LVDs: 25.83 (25-40mm) Aortic Root: 32.21 mm Volumes Left Atrial Volume (Systole) LA ESV Index: 24.90 mL/m2 Aortic Valve AoV Peak Mirza.: 1.36 m/s AO Peak Gr.: 7.36 mmHg LVOT Max P.61 mmHg AO Mean Gr.: 3.68 mmHg LVOT Mean P.56 mmHg LVOT Max V: 0.95 m/s AO V2 VTI: 26.12 cm LVOT Mean V: 0.56 m/s JULIA (VTI): 2.67 cm2 LVOT V1 VTI: 22.32 [place] [address] 2 D/M-MODE ECHOCARDIOGRAM Name: VISHNU THOMAS Room: [address] IN ..#: [id number] Admission: 07/31/20 Attend Phys: Lincoln Shelby, Discharge: Date of : 70 Date of Service: 08/01/20 1503 Report #: [id number] Mitral Valve E/A Ratio: 1.32 MV Decel. Time: 165.76 ms MV E Max Mirza.: 0.96 m/s MV PHT: 48.07 ms MVA (PHT): 4.58 cm2 TDI E/Lateral E': 6.86 E/Medial E': 10.67 Medial E' Mirza.: 0.09 m/s Lateral E' Mirza.: 0.14 m/s Pulmonary Valve PV Peak Mirza.: 0.90 m/s PV Peak Gr.: 3.23 mmHg Left Ventricle The left ventricle is normal size. There is normal LV segmental wall motion. There is normal left ventricular wall thickness. Left ventricular systolic function is normal. The left ventricular ejection fraction is within the normal range. LVEF is 60%. The left ventricular diastolic function is normal. Right Ventricle The right ventricle is normal size. The right ventricular systolic function is normal. Atria The left atrium size is normal. The right atrium size is normal. Aortic Valve The aortic valve is normal in structure. No aortic regurgitation is present. There is no aortic valvular stenosis. Mitral Valve The mitral valve is normal in structure. Mild mitral regurgitation. No evidence of mitral valve stenosis. Tricuspid Valve The tricuspid valve is normal in structure. There is no tricuspid valve regurgitation noted. Pulmonic Valve The pulmonary valve is normal in structure. Trace pulmonic regurgitation. Trace to mild [place] [address] 2 D/M-MODE ECHOCARDIOGRAM Name: VISHNU THOMAS Room: [address]#: [id number] Admission: 07/31/20 Attend Phys: Lincoln Shelby, Discharge: Date of : 70 Date of Service: 08/01/20 1503 Report #: [id number] Great Vessels The aortic root is normal in size. IVC is normal in size and collapses >50% with inspiration. Pericardium There is no pericardial effusion. <Conclusion> The left ventricle is normal size. There is normal left ventricular wall thickness. Left ventricular systolic function is normal. The left ventricular ejection fraction is within the normal range. LVEF is 60%. The left ventricular diastolic function is normal. The right ventricle is normal size. The left atrium size is normal. The aortic valve is normal in structure. The mitral valve is normal in structure. Mild mitral regurgitation. No evidence of mitral valve stenosis. The tricuspid valve is normal in structure. IVC is normal in size and collapses >50% with inspiration. There is no pericardial effusion. There is normal LV segmental wall motion. <ELECTRONICALLY SIGNED> By: Rober Ortiz MD, FACC 08/01/20 1503 1503 1503 Rober Ortiz MD, FACC /INF
--- NOTE | 2020-08-01 15:23 | EKG ---
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
--- NOTE | 2020-08-01 17:05 | NUR ---
DANIEL WITH VASCULAR SURGERY CALLED, PT IS ON THE SCHEDULE FOR Thursday WITH DR RAO. ORDER FOR NPO AFTER MIDNIGHT TONIGHT CANCELLED PER HER REQUEST.
[2020-08-02] VITALS: BP 161/79
[2020-08-02 04:00] VITALS: BP 175/80
[2020-08-02 05:31] LABS: HEMATOCRIT 42.7 % (42.0-52.0); HEMOGLOBIN 15.3 gm/dL (14.0-18.0); MCH 31.3 pg (26.0-34.0); MCHC 35.9 g/dL (28.0-37.0); MCV 87.1 fL (80.0-100.0); MPV 7.7 fl. (7.2-11.1); RBC 4.91 mil/uL (4.50-6.00); WBC 4.8 thou/uL (4.0-11.0)
[2020-08-02 05:42] LABS: INR 1.5; PROTIME 15.1 Seconds (9.20-11.50)
[2020-08-02 05:53] LABS: ANION GAP 7 mmol/L (7-16); BUN 11 mg/dL (7-18); CHLORIDE 101 mmol/L (98-107); CHOLESTEROL 141 mg/dL (<200); CO2 31 mmol/L (21-32); CREATININE 0.9 mg/dL (0.6-1.3); GLUCOSE 125 mg/dL (70-99); HDL CHOLESTEROL 26 mg/dL (>40); LDL CHOLESTEROL ND mg/dL (<100); MAGNESIUM 1.6 mg/dL (1.8-2.4); POTASSIUM 4.2 mmol/L (3.5-5.1); SODIUM 139 mmol/L (136-145); TC:HDL 5.4 Ratio (Not establshd); TRIGLYCERIDE 454 mg/dL (<150); VLDL 91 mg/dL (<40)
[2020-08-02 06:24] LABS: SERUM ASSESSMENT Clear
--- NOTE | 2020-08-02 07:05 | NUR ---
CHANGE OF SHIFT, BEDSIDE REPORT GIVEN PATIENT SEEN AT BEDSIDE, IN BED ASLEEP ASSUMED PATIENT CARE
[2020-08-02 08:00] VITALS: BP 175/80
--- NOTE | 2020-08-02 08:27 | NUR ---
PT CARE ASSUMED AT 1930. SAT MAINTAINED IN RA. ALERT AND ORIENTED X4. C/O PAIN, MEDICATION GIVEN PER EMAR. HEPARIN DRIP RUNNING. LFT FOOT COLD TO TOUCH. CALL LIGHT WITHIN REACH AND BED IN LOW POSITION. HOURLY ROUNDING DONE FOR PT SAFETY.
[2020-08-02 12:33] VITALS: BP 201/92
--- NOTE | 2020-08-02 13:12 | NUR ---
Plan surgery tomorrow by vascular.
[2020-08-02] MEDS ORDERED: ASA81BEC PO (15:50)
[2020-08-02] MEDS ORDERED: ZETIA10 MG PO (15:50)
[2020-08-02 16:14] VITALS: BP 187/90
[2020-08-02] MEDS ORDERED: LOVASTATIN 20 M20 MG PO (16:26)
[2020-08-02 16:50] VITALS: BP 187/90
--- NOTE | 2020-08-02 17:13 | NUR ---
patient discharged to home discharge instructions given, acknowledged, signed paperwork given iv and heart monitor removed personal belongings returned patient assisted out via good condition to [facility]
== END 2020-08-02 17:15 | disposition home or self-care (01) | DRG 316 ==
LOC: M.ERS 21:37 → M.2W 23:15 → M.TBA-ER 23:15 → M.2W 08-01 00:15
PROVIDERS: Emergency Medicine; ADMIT Internal Medicine; ATTEND Internal Medicine
DX: T82.856A Stenosis of peripheral vascular stent, initial encounter (principal); E11.51 Type 2 diabetes mellitus with diabetic peripheral angiopathy without gangrene; I10 Essential (primary) hypertension; Y83.8 Other surgical procedures as the cause of abnormal reaction of the patient, or of later complication, without mention of misadventure at the time of the procedure; I99.8 Other disorder of circulatory system; I65.23 Occlusion and stenosis of bilateral carotid arteries; I77.9 Disorder of arteries and arterioles, unspecified; E78.5 Hyperlipidemia, unspecified; F17.210 Nicotine dependence, cigarettes, uncomplicated; Y92.89 Other specified places as the place of occurrence of the external cause; Z95.828 Presence of other vascular implants and grafts; Z79.899 Other long term (current) drug therapy; Z79.01 Long term (current) use of anticoagulants

== ENCOUNTER 2020-08-07 17:14 | Emergency (ER) | payer MEDICAID ==
[~2020-08-07] VITALS: Ht 188 cm; Wt 86.2 kg
[~2020-08-07 17:14] MED LIST changes: +ZETIA10 MG PO
[2020-08-07 18:46] LABS: INR 1.9; PROTIME 18.8 Seconds (9.20-11.50)
[2020-08-07 19:35] VITALS: BP 146/58
== END 2020-08-07 19:35 | disposition home or self-care (01) ==
LOC: M.ERS 17:14
PROVIDERS: Physician Assistant
DX: I73.9 Peripheral vascular disease, unspecified (principal); M79.605 Pain in left leg; I10 Essential (primary) hypertension; E11.9 Type 2 diabetes mellitus without complications; Z79.82 Long term (current) use of aspirin; Z79.899 Other long term (current) drug therapy; Z79.01 Long term (current) use of anticoagulants

== ENCOUNTER 2020-12-05 13:39 | Emergency (ER) | payer MEDICAID ==
[~2020-12-05] VITALS: Ht 188 cm; Wt 95.3 kg
[2020-12-05] MEDS ORDERED: ZPAK PO (15:44)
[2020-12-05] MEDS ORDERED: PREDNISONE 20 M20 M1 PO (15:44)
[2020-12-05 15:53] VITALS: BP 132/68
== END 2020-12-05 15:54 | disposition home or self-care (01) ==
LOC: M.ERS 13:39
DX: U07.1 COVID-19 (principal); I10 Essential (primary) hypertension; E11.9 Type 2 diabetes mellitus without complications